=== PATIENT | male | born 1995 | race Hispanic/Latino ===

== ENCOUNTER 2024-01-02 22:23 | Emergency (ER) | payer SELFPAY ==
[2024-01-03] MEDS ORDERED: hydrOXYzine 25 MG TAB ONE (02:42)
== END 2024-01-03 02:55 | disposition home or self-care (01) ==
LOC: CSHERS 22:23
DX: F41.9 Anxiety disorder, unspecified (principal)
CPT/HCPCS: 93005; 99284